=== PATIENT | female | born 1975 | race Caucasian/White ===

== ENCOUNTER 2018-06-13 21:24 | Emergency (ER) | payer OTHER ==
[2018-06-13 21:32] VITALS: BP 121/56; PULSE 77; TEMP 98.3; BMI 32.9
--- NOTE | 2018-06-13 21:33 | PDOC ---
History of Present Illness - History of Present Illness Initial Comments: 06/13/18 21:43 The patient is a 43 year old female with a PMH of seizures who presents to the ER for a prescription refill. Patient was seen in an ER for seizures, prescribed keppra 500 mg BID and told to follow up with neurology. Patient has an appointment scheduled for July 03 to see a neurologist, but states she needs more Keppra to carry her until then. Patient has no other complaints at this time. The patient denies chest pain, shortness of breath, headache and dizziness. Denies fever, chills, nausea, vomit, diarrhea and constipation. Denies dysuria, frequency, urgency and hematuria. Allergies: NKA Past surgical history: None reported. Social history: No reported alcohol, drug or cigarette use. Adult ROS General: No fevers or chills, no weakness, no weight loss HEENT: No change in vision. No sore throat,. No ear pain CardioVascular: No chest pain or shortness of breath Respiratory:No cough, or wheezing. Gastrointestinal: no nausea, vomiting, diarrhea or constipation, No rectal bleeding Genitourinary: No dysuria, hematuria, or frequency Musculoskeletal: No joint or muscle pain or swelling Neurologic: No headache, vertigo, dizziness or loss of consciousness Psychiatric: nor depression Skin: No rashes or easy bruising Endocrine: no increased thirst or abnormal weight change Allergic: no skin or latex allergy All other systems reviewed and normal Basic PE GENERAL: The patient is awake, alert, and fully oriented, in no acute distress. HEAD: Normal with no signs of trauma. EYES: Pupils equal, round and reactive to light, extraocular movements intact, sclera anicteric, conjunctiva clear. EXTREMITIES: Normal range of motion, no edema. NEUROLOGICAL: Normal speech, normal gait. PSYCH: Normal mood, normal affect. SKIN: Warm, Dry, normal turgor, no rashes or lesions noted. <Yue Zuniga - Last Filed: 06/13/18 21:44> - General History Source: Patient Exam Limitations: No Limitations - History of Present Illness Initial Comments: A portion of this note was documented by scribe services under my direction. I have reviewed the details of the note, within reason, and agree with the documentation with the following case summary and management plan written by me. Patient treated in the ED. Nursing notes are reviewed and incorporated into the medical decision-making. Vital signs reviewed. Assessment and plan: This is a 43-year-old female who comes in complaining of ran out of her seizure medication and can't see her neurologist for another 2 weeks. Patient given prescription for enough medication to get her through until she sees her neurologist. 06/13/18 23:10 <Mya Ramires I - Last Filed: 06/13/18 23:10> - General Chief Complaint: RX Refill Stated Complaint: PRESCRIPTION REFILL Time Seen by Provider: 06/13/18 21:33 Past History <Yue Zuniga - Last Filed: 06/13/18 21:44> - Past Medical History COPD: No Seizures: Yes - Suicide/Smoking/Psychosocial Hx Smoking History: Never smoked Have you smoked in the past 12 months: No Information on smoking cessation initiated: No Hx Alcohol Use: No Drug/Substance Use Hx: No Substance Use Type: None <Mya Ramires I - Last Filed: 06/13/18 23:10> - Past Medical History Allergies/Adverse Reactions: Allergies Allergy/AdvReac Type Severity Reaction Status Date / Time No Known Allergies Allergy Verified 06/13/18 21:26 Home Medications: Ambulatory Orders Levetiracetam 500 mg PO BID 06/13/18 levETIRAcetam [Roweepra] 500 mg PO BID #60 tablet 06/13/18 *Physical Exam - Vital Signs Last Vital Signs Temp Pulse Resp BP Pulse Ox 98.3 F 77 16 121/56 L 100 06/13/18 21:28 06/13/18 21:28 06/13/18 21:28 06/13/18 21:28 06/13/18 21:28 <Yue Zuniga - Last Filed: 06/13/18 21:44> - Vital Signs Last Vital Signs Temp Pulse Resp BP Pulse Ox 98.3 F 77 16 121/56 L 100 06/13/18 21:28 06/13/18 21:28 06/13/18 21:28 06/13/18 21:28 06/13/18 21:28 <Mya Ramires I - Last Filed: 06/13/18 23:10> Moderate Sedation - Procedure Monitoring Vital Signs: Procedure Monitoring Vital Signs Temperature 98.3 F 06/13/18 21:28 Pulse Rate 77 06/13/18 21:28 Respiratory Rate 16 06/13/18 21:28 Blood Pressure 121/56 L 06/13/18 21:28 O2 Sat by Pulse Oximetry (%) 100 06/13/18 21:28 <Yue Zuniga - Last Filed: 06/13/18 21:44> - Procedure Monitoring Vital Signs: Procedure Monitoring Vital Signs Temperature 98.3 F 06/13/18 21:28 Pulse Rate 77 06/13/18 21:28 Respiratory Rate 16 06/13/18 21:28 Blood Pressure 121/56 L 06/13/18 21:28 O2 Sat by Pulse Oximetry (%) 100 06/13/18 21:28 <Mya Ramires I - Last Filed: 06/13/18 23:10> *DC/Admit/Observation/Transfer - Attestations Scribe Attestion: 06/13/18 21:44 Documentation prepared by Yue Zuniga, acting as medical writer for Mya Ramires MD. <Yue Zuniga - Last Filed: 06/13/18 21:44> - Discharge Dispostion Decision to Admit order: No <Mya Ramires I - Last Filed: 06/13/18 23:10> Diagnosis at time of Disposition: Medication refill - Discharge Dispostion Disposition: HOME Condition at time of disposition: Stable - Prescriptions Prescriptions: levETIRAcetam [Roweepra] 500 mg PO BID #60 tablet - Patient Instructions Additional Instructions: Get the medication filled and take as prescribed Follow-up with your neurologist make sure you keep that appointment seeking get more refills. Return to the emergency department immediately with ANY new, persistent or worsening symptoms. Continue any medications as previously prescribed by your physician. You should follow up with your primary doctor as soon as possible regarding today's emergency department visit. . Please make sure your doctor reviews the results of your emergency evaluation. Thank you for coming to the Emergency Department today for your care. It was a pleasure to see you today. Please note that your evaluation is INCOMPLETE until you follow-up with your doctor.
[2018-06-13] MEDS ORDERED: levETIRAcetam 500 MG TABLET (FP) PO ONE (21:40)
== END 2018-06-13 22:04 | disposition home or self-care (01) ==
LOC: FER 21:24
DX: Z76.0 Encounter for issue of repeat prescription (principal)
CPT/HCPCS: 99281-25

== ENCOUNTER 2020-04-25 14:20 | Emergency (ER) | payer OTHER ==
[2020-04-25] MEDS ORDERED: IBUPROFEN 400 MG TABLET (FP) PO ONE ×2 (14:24→14:27)
[2020-04-25 14:26] VITALS: BP 138/76; PULSE 74; TEMP 99; BMI 34.7
== END 2020-04-25 15:23 | disposition home or self-care (01) ==
LOC: FER 14:20
DX: M54.2 Cervicalgia (principal)
CPT/HCPCS: 99283-25

== ENCOUNTER 2022-09-14 17:13 | Emergency (ER) | payer OTHER ==
[2022-09-14 17:33] VITALS: BP 113/70; PULSE 86; RESP 18; TEMP 98.5; BMI 27.4
[2022-09-14] MEDS ORDERED: ACETAMINOPHEN 1000 MG/100 ML BAG IVPB ONE (17:42)
[2022-09-14] MEDS ORDERED: SODIUM CHLORIDE 1,000 ML IV STA (17:42)
[2022-09-14] MEDS ORDERED: FAMOTIDINE 20 MG/50 ML IVPB 20 MG/50 ML MG IVPB ONE ×2 (17:43→18:11)
[2022-09-14] MEDS ORDERED: ACETAMINOPHEN INJECTION 100 ML IVPB ONE (18:11)
[2022-09-14 18:19] LABS: HEMATOCRIT 45.4 % (32.4-45.2); HEMOGLOBIN 15.5 G/dL (10.7-15.3); MCH 30.3 pg (25.7-33.7); MCHC 34.1 g/dl (32.0-36.0); MEAN CELL VOLUME 88.9 fl (80-96); RBC 5.11 10^6/uL (3.60-5.2); RDW 14.2 % (11.6-15.6); WHITE BLOOD COUNT 7.4 10^3/uL (4.0-10.8)
[2022-09-14 18:38] LABS: ALBUMIN 4.7 g/dl (3.4-5.0); BILIRUBIN,TOTAL 0.7 mg/dl (0.2-1); BLOOD UREA NITROGEN 17.4 mg/dl (7-18); CREATININE 0.5 mg/dl (0.6-1.3); SGPT/ALT 25.8 U/L (7-52); TOT PROT 8.2 g/dl (6.4-8.2)
[2022-09-14 18:39] LABS: POTASSIUM 4.1 mmol/L (3.5-5.1)
[2022-09-14 18:56] LABS: PLATELET ESTIMATE ADEQUATE
[2022-09-14 18:59] LABS: EPITHELIAL CELLS FEW /hpf; URIC ACID CRYSTALS 1+ /hpf (NONE SEEN)
== END 2022-09-14 20:35 | disposition home or self-care (01) ==
LOC: FER 17:13
PROC: 3E033GC Introduction of Other Therapeutic Substance into Peripheral Vein, Percutaneous Approach (ICD-10-PCS; principal; 2022-09-14)
PROC: 3E033NZ Introduction of Analgesics, Hypnotics, Sedatives into Peripheral Vein, Percutaneous Approach (ICD-10-PCS; 2022-09-14)
DX: R10.32 Left lower quadrant pain (principal); R11.2 Nausea with vomiting, unspecified; R19.7 Diarrhea, unspecified
CPT/HCPCS: 36415; 74177-TC; 80053; 81003; 81015; 81025; 83690; 85027; 99285-25; Q9967